=== PATIENT | female | born 1955 | race Two or more races ===

== ENCOUNTER 2024-08-29 09:58 | Outpatient (CLI) | payer MEDICARE, BC ==
[~2024-08-29] VITALS: Ht 158.8 cm; Wt 92.5 kg
[2024-08-29 10:16] LABS: TOTAL HEMOGLOBIN 11.3 G/dl (12.0-16.0)
[2024-08-29 11:00] VITALS: PULSE 67; RESP 18; O2SAT 94
[2024-08-29] MEDS: albuterol 2.5 MG/3 ML nebule NEB ONE (11:04)
[2024-08-29 11:14] VITALS: PULSE 63; RESP 16
--- NOTE | 2024-09-04 14:30 | PROCEDURE NOTE - Respiratory ---
Procedure Note-Respiratory Providers to Copies To 1: KOLTON CISNEROS MD Procedure Name: This is a complete pulmonary function study dated August 29, 2024. Hemoglobin measurement was done as part of the study. Spirometry measurements: There is substantial reduction in the forced vital capacity and the FEV1. The FEV1 ratio is slightly reduced. Several of the flow rate measurements show significant reduction. After inhaled bronchodilator was administered, the FEV1 and some of the flow rates show slight improvement. Lung volume measurements: The total lung capacity, functional residual capacity, and residual volume measurements are all normal. Lung diffusion measurement: The DLCO measurement is in the normal range. It is noted that the hemoglobin measurement shows borderline anemia with hemoglobin measuring at 11.3 grams/deciliter. Airway resistance measurement: The airway resistance is slightly elevated. Overall conclusion: This study is abnormal. There is evidence for moderate severity obstructive ventilatory defect. This is consistent with the patient's diagnosis of smoking-related COPD. The patient shows slight improvement with bronchodilator therapy. Continued use of bronchodilator medication is recommended. The lung diffusion capacity is normal. We have no previous studies for comparison. Close pulmonary follow-up is recommended. KOLTON CISNEROS MD Sep 04, 2024 14:30
== END 2024-08-29 23:59 | disposition home or self-care (01) ==
LOC: RT 09:58
PROVIDERS: ATTEND Internal Medicine Pulmonary Disease
DX: J44.9 Chronic obstructive pulmonary disease, unspecified (principal)
CPT/HCPCS: 85018; 94060; 94727; 94729; 94760